=== PATIENT | female | born 1995 ===

== ENCOUNTER 2016-12-01 14:03 | Emergency (ER) | payer OTHER ==
[~2016-12-01] VITALS: Ht 167.6 cm; Wt 78.8 kg
[2016-12-01 14:07] VITALS: TEMP 37.6; Ht 167.6 cm; Wt 78.8 kg
--- NOTE | 2016-12-01 14:53 | DIAGNOSTIC IMAGING REPORT ---
RIGHT HAND MIN 3 VIEWS ROUTINE CLINICAL HISTORY: Right hand pain COMPARISON: None. DISCUSSION: There is an age-indeterminate fracture involving the volar base of the middle phalanx of the fifth finger. Please correlate with the patient's site of pain. There is mild ulnar minus variance. IMPRESSION: Age-indeterminate fracture involving the volar base of the middle phalanx of the fifth finger. Please correlate with the patient's site of pain. Electronically signed by: Jos Sandhu M.D. 12/01/2016 2:51 PM Dictated Date/Time: 12/01/2016 2:50 PM
[2016-12-01 15:19] VITALS: BP 133/87; PULSE 95; O2SAT 99
--- NOTE | 2016-12-01 16:42 | EMERGENCY ROOM VISIT NOTE ---
ED Visit Note First contact with patient: 14:25 CHIEF COMPLAINT: right little finger injury yesterday HISTORY OF PRESENT ILLNESS: This 20-year-old female patient injured the right little finger last night while ice-skating. She fell, and lunged forward, striking the wall. Her hand essentially punched the wall. There was no audible snap or crack at that time. The patient has difficulty with motion of the little finger. She notes swelling and discoloration at the little finger. She has difficulty bringing it in alignment with the ring finger. She states it is a little difficult to make a full fist. No other fingers are involved. No other complaints. No other treatment. No prior history of significant finger injury. REVIEW OF SYSTEM: HEENT: No dizziness, visual problems, hearing loss, or tinnitus. There is no difficulty swallowing and no oral lesions are present. PULMONARY: No cough, shortness of breath, sputum production or hemoptysis. CARDIOVASCULAR: No chest pain, palpitations, shortness of breath or peripheral edema. GASTROINTESTINAL: No diarrhea, constipation, nausea, vomiting, or abdominal pain. GENITOURINARY: No dysuria, frequency, urgency or nocturia. NEUROLOGIC: No weakness, muscle tenderness, epilepsy or history of neurological problems. MUSCULOSKELETAL: No history of joint tenderness/swelling. No history of arthritis or arthralgias. SKIN: No rashes or lesions. PSYCHIATRIC: No history of depression or mental illness. ENDOCRINE: No history of diabetes, thyroid disorders, or abnormal hair growth. PMH: The patient is healthy; there is no significant medical or surgical history. Family history: Unremarkable. Parents are living. Current medications: None Allergies: NKDA SOCIAL HISTORY: Patient lives by herself. Unemployed. [employer] student. No tobacco use, no EtOH use. PHYSICAL EXAM: Vital Signs: Reviewed Nurse's notes. Afebrile. General: Well- developed, well-nourished, young female, in no acute distress. Sitting on a bed. Alert and oriented. Skin:Warm and dry with good turgor. No rashes or lesions. She has ecchymosis and edema present at the right little finger. It extends from the middle phalanx to the metacarpal head. The patient is not diaphoretic. No abrasions. Musculoskeletal: There is no visible deformity of the finger. It is slightly abducted. She has difficulty bringing it in alignment with the ring finger actively. Passively it is able to line up normally. The patient is able to extend and flex it. FDS and FDP functions are clearly intact by isolation. She is able to abduct and adduct actively. The DIP joint is not tender and extension is full and strong there. The PIP joint area is swollen and is tender. No pain with palpation over the rest of the hand or other digits. Neurologic: Gross sensation is intact across each of the digits by soft touch. Capillary refill is equal to the other fingers. EMERGENCY DEPARTMENT COURSE: An x-ray of the finger shows a small avulsion fracture of the middle phalanx, volar aspect. This was read by radiology. DIAGNOSIS: Fractured right little finger middle phalanx DISCHARGE INSTRUCTIONS: Patient was educated regarding today's findings. Conservative care measures were discussed. Fingers were conchis taped. Ice and elevate intermittently to reduce pain and swelling. Tylenol and Motrin every 6 hours as needed for discomfort. Avoid further trauma. Follow-up with orthopedics for further care. She will call [facility] on Saturday for an appointment with Dr. Hernandez on Saturday or . I think that her ability to adduct normally will return once the swelling resolves. Return to the ED for any other concerns. Current/Historical Medications No Active Prescriptions or Reported Meds Allergies Coded Allergies: No Known Allergies (Unverified , 12/01/16) Vital Signs Date Time Temp Pulse Resp B/P Pulse Ox O2 Delivery O2 Flow Rate FiO2 12/01/16 15:19 95 16 133/87 99 12/01/16 14:07 37.6 106 18 152/99 97 Room Air Departure Information Impression Primary Impression: Closed fracture of phalanx of little finger Dispostion Home / Self-Care Condition GOOD Prescriptions No Active Prescriptions or Reported Meds Referrals Vivek Hernandez MD No Doctor, Assigned (PCP) [facility] Forms HOME CARE DOCUMENTATION FORM, MOTRIN USE, TYLENOL USE, IMPORTANT VISIT INFORMATION Patient Instructions My [employer] Additional Instructions Keep the fingers conchis taped at all times other than bathing Call [facility] on Saturday for follow-up with Dr. Hernandez this week Ice and elevate the finger frequently to reduce pain and swelling Tylenol and Motrin every 6 hours as needed for discomfort Gentle motion daily
== END 2016-12-01 15:21 | disposition home or self-care (01) ==
LOC: C.EDB 14:06 → C.EDD 15:21
DX: S62.626A Displaced fracture of middle phalanx of right little finger, initial encounter for closed fracture (principal); Y93.21 Activity, ice skating; W22.8XXA Striking against or struck by other objects, initial encounter